=== PATIENT | female | born 1985 | race Two or more races ===

== ENCOUNTER → 2018-03-17 | Outpatient (CLI) | payer SELFPAY ==
--- NOTE | 2018-03-17 15:38 | RADIOLOGY REPORT (SQ) ---
EXAM DESCRIPTION: U/S [id number] TRNABD 1GES W/ODOP COMPLETED DATE/TIME: 03/17/2018 2:31 pm REASON FOR STUDY: ENCOUNTER FOR SUPRVSN OF NORMAL , FIRST TRIMESTER Z34.81 ENCOUNTER FOR S UPRVSN OF NORMAL , FIRST TRIM COMPARISON: None. TECHNIQUE: Transabdominal static and realtime grayscale images acquired of the pelvis. Additional se lected spectral and color Doppler images recorded. All images stored on PACs. bHCG: Not available CLINICAL DATES: Last menses 12/28/2017 LIMITATIONS: None. FINDINGS: FETUS: Living intrauterine . ULTRASOUND EGA: 11 weeks 4 days ULTRASOUND FADIA: 10/02/2018 CRL: 4.8 cm FHR: 171 beats per minute. SUBCHORIONIC BLEED: No SIZE OF BLEED: Not applicable. UTERUS: No masses. No anomalies. Uterus is 15 x 10 x 8 cm in size. CERVICAL LENGTH: 4.4 cm Closed. RIGHT ADNEXA: Right ovary is 3.4 x 3 x 2.3 cm in size with a 2.4 cm right ovarian cyst, likely the co rpus luteum. Normal color flow No adnexal free fluid. No adnexal masses. LEFT ADNEXA: Not visualized due to adnexal bowel gas. FREE FLUID: None. OTHER: No other significant finding. IMPRESSION: LIVING INTRAUTERINE . EGA 11 weeks 4 days Trimester of : First - 0 to 13 weeks. TECHNICAL DOCUMENTATION: JOB ID: [id number] [employer]- All Rights Reserved Reading location - IP/workstation name: [email or web address]
== END ==
LOC: RAD 13:58
PROVIDERS: ATTEND Nurse Practitioner Women's Health
DX: O34.81 Maternal care for other abnormalities of pelvic organs, first trimester (principal); N83.11 Corpus luteum cyst of right ovary; Z3A.11 11 weeks gestation of pregnancy
CPT/HCPCS: 76801

== ENCOUNTER → 2018-08-28 | Outpatient (CLI) | payer SELFPAY ==
--- NOTE | 2018-08-28 15:58 | RADIOLOGY REPORT (SQ) ---
EXAM DESCRIPTION: U/S OB 14+ TRNABD 1GES W/O DOP COMPLETED DATE/TIME: 08/28/2018 2:41 pm REASON FOR STUDY: Z34.83 ENCOUTER FOR SUPERVISION OF OTHER NORMAL ,THIRD TRIMESTER Z34.83 ENCOUNTER FOR SUPRVSN OF NORMAL , THIRD TRIM COMPARISON: None. TECHNIQUE: Static and Dynamic grayscale imaging performed of gravid uterus using transabdominal appr oach. Additional selected color Doppler and spectral images recorded. All stored on PACS. LIMITATIONS: None. FINDINGS: FETUSES SEEN:1 EGA: 35 week 2 day. Calculated using BPD,FL,HC,AC documented on images. No discrepancy with clinical dates. FADIA: 09/30/2018. EFW: 2,799 grams PERCENTILE: 62%. LATANYA: 4.2 cm. PLACENTA: Fundal GRADE: I PRESENTATION: Cephalic. ANATOMY: HEART RATE: 143 beats per minute. FOUR CHAMBER HEART: Visualized. THREE VESSEL CORD: Yes. CORD INSERTION: Not visualized. KIDNEYS AND BLADDER: Visualized. Appear normal. STOMACH: Visualized. Appears normal. SPINE: Limited visualization. No gross abnormality. BRAIN AND LATERAL VENTRICLES: Lateral ventricles and cerebellum not seen. Normal brain as visualized. OTHER: No other significant finding. MATERNAL ADNEXA: Maternal ovaries not visualized. CERVICAL LENGTH: 4 cm. Closed. OTHER: No other significant finding. IMPRESSION: LIVING INTRAUTERINE . ESTIMATED GESTATIONAL AGE 35 WEEK 2 DAY. LIMITED VISUALIZATION OF THE ANATOMY. THERE IS OLIGOHYDRAMNIOS. Trimester of : Third trimester - 28 weeks to delivery. TECHNICAL DOCUMENTATION: JOB ID: [id number] [employer]- All Rights Reserved Reading location - IP/workstation name: [email or web address]
== END ==
LOC: RAD 15:04
PROVIDERS: ATTEND Nurse Practitioner
DX: Z34.83 Encounter for supervision of other normal pregnancy, third trimester (principal)
CPT/HCPCS: 76805

== ENCOUNTER 2018-08-30 15:58 | Outpatient (CLI) | payer SELFPAY ==
[2018-08-30] MEDS: RINGERS SOLUTION,LACTATED 1,000 ML IV ONE (16:30)
[2018-08-30 16:40] LABS: APPEARANCE,URINE CLEAR; BILIRUBIN,URINE NEGATIVE (NEGATIVE); COLOR,URINE YELLOW; GLUCOSE, URINE NEGATIVE (NEGATIVE); KETONES,URINE NEGATIVE (NEGATIVE); LEUKOCYTE ESTERASE,URINE NEGATIVE (NEGATIVE); NITRITE,URINE NEGATIVE (NEGATIVE); PROTEIN,URINE NEGATIVE (NEGATIVE); URINE SPECIFIC GRAVITY 1.008; UROBILINOGEN,URINE NEGATIVE mg/dL (<2.0)
[2018-08-30 16:58] LABS: URINE AMPHETAMINES SCREEN NEGATIVE; URINE BARBITURATES SCREEN NEGATIVE; URINE BENZODIAZEPINES SCREEN NEGATIVE; URINE COCAINE SCREEN NEGATIVE; URINE MARIJUANA (THC) SCREEN NEGATIVE; URINE METHADONE SCREEN NEGATIVE; URINE PHENCYCLIDINE SCREEN NEGATIVE
--- NOTE | 2018-08-30 19:11 | RADIOLOGY REPORT (SQ) ---
EXAM DESCRIPTION: U/S OB LIMITED COMPLETED DATE/TIME: 08/30/2018 7:01 pm REASON FOR STUDY: LATANYA- 35.2 WEEK IUP, OLIGO COMPARISON: 08/28/2018 TECHNIQUE: Limited transabdominal grayscale ultrasound for evaluation of specific requested obstetri jai parameters. LIMITATIONS: None. FINDINGS: CERVICAL LENGTH: 4.7 cm. Closed. LATANYA: 5.3 cm. FHR: 139 beats per minute. PRESENTATION: Cephalic. PLACENTA: Not assessed ANATOMY: Not assessed OTHER: No other significant findings. IMPRESSION: LIMITED OBSTETRICAL ULTRASOUND WITH MEASURED PARAMETERS DELINEATED ABOVE. Trimester of : Third trimester - 28 weeks to delivery. TECHNICAL DOCUMENTATION: JOB ID: [id number] [employer]- All Rights Reserved Reading location - IP/workstation name: [email or web address]
== END 2018-08-30 19:50 | disposition home or self-care (01) ==
LOC: LC 15:58
PROVIDERS: ATTEND Obstetrics & Gynecology
PROC: 4A1HXCZ Monitoring of Products of Conception, Cardiac Rate, External Approach (ICD-10-PCS; principal; 2018-08-30)
DX: Z34.83 Encounter for supervision of other normal pregnancy, third trimester (principal)
CPT/HCPCS: 59025; 76815; 80307; 81001; 84112

== ENCOUNTER 2018-09-06 13:47 | Outpatient (CLI) | payer SELFPAY ==
--- NOTE | 2018-09-06 14:14 | Non Stress Test Report ---
Non Stress Test Datetime Report Generated by CPN: 09/06/2018 14:14 DEMOGRAPHIC EGA NST: 36.2 EGA NST: 35.2 INDICATION Indication for Study: Oligohydramnios; Ordered by Provider Indication for Study: Oligohydramnios; Ordered by Provider VITAL SIGNS Temperature - NST: 96.2 Pulse - NST: 80 RESP - NST: 14 NBPSYS NST: 132 NBPDIA NST: 77 URINE RESULTS Urine Protein, NST: Negative Urine Ketones - NST: Negative Urine Glucose - NST: Negative Urine Blood - NST: Negative MONITORING Monitor Explained: Monitor Explained; Test Explained Monitor Explained: Monitor Explained; Test Explained; Patient Verbalized Understanding Time on Monitor: 09/06/2018 13:47 Time on Monitor: 08/30/2018 16:18 Time off Monitor: 09/06/2018 14:08 Time off Monitor: 08/30/2018 17:27 NST Duration: 21 NST Duration: 69 NST INTERVENTIONS NST Interventions: PO Hydration NST Interventions: PO Hydration; IV Fluids; Reposition Patient Physician Notified NST: Dr. Noble Physician Notified NST: Dr. Vinson BABY A: [id number] BABY A Movement : Present Movement : Present Contraction Frequency : 0 Contraction Frequency : None FHR Baseline : 125 FHR Baseline : 135 Accelerations : 15X15 Accelerations : 15X15 Decelerations : None Decelerations : None Variability : Moderate 6-25bpm Variability : Moderate 6-25bpm NST Review: Meets Criteria for Reactive NST NST Review: Meets Criteria for Reactive NST NST Review and Verified By : RO MARTINEZ RN NST Review and Verified By : Jass BROWNE NST Results: Reactive NST Results: Reactive NST REPORT Report Trigger: Send Report
--- NOTE | 2018-09-06 15:57 | RADIOLOGY REPORT (SQ) ---
EXAM DESCRIPTION: U/S OB LIMITED COMPLETED DATE/TIME: 09/06/2018 3:43 pm REASON FOR STUDY: needs LATANYA/SDP, monitoring, AMA COMPARISON: 08/30/2018 TECHNIQUE: Limited transabdominal grayscale ultrasound for evaluation of specific requested obstetri jai parameters. LIMITATIONS: None. FINDINGS: CERVICAL LENGTH: 5.5 cm. Closed. LATANYA: 6.3 cm, previously 5.3 cm. FHR: 155 beats per minute. PRESENTATION: Cephalic. PLACENTA: Anterior ANATOMY: Not assessed OTHER: No other significant findings. IMPRESSION: LIMITED OBSTETRICAL ULTRASOUND WITH MEASURED PARAMETERS DELINEATED ABOVE. Trimester of : Third trimester - 28 weeks to delivery. TECHNICAL DOCUMENTATION: JOB ID: [id number] [employer]- All Rights Reserved Reading location - IP/workstation name: [email or web address]
== END 2018-09-06 16:01 | disposition home or self-care (01) ==
LOC: LC 13:47
PROVIDERS: ATTEND Student in an Organized Health Care Education/Training Program
PROC: 4A1HXCZ Monitoring of Products of Conception, Cardiac Rate, External Approach (ICD-10-PCS; principal; 2018-09-06)
DX: Z34.93 Encounter for supervision of normal pregnancy, unspecified, third trimester (principal)
CPT/HCPCS: 59025; 76815

== ENCOUNTER 2018-09-08 13:58 | Outpatient (CLI) | payer SELFPAY ==
--- NOTE | 2018-09-08 14:11 | Non Stress Test Report ---
Non Stress Test Datetime Report Generated by CPN: 09/08/2018 14:10 DEMOGRAPHIC EGA NST: 36.4 INDICATION Indication for Study: Other Indication for Study: Oligohydramnios; Other Indication for Study (NST) Other: biweekly nst scheduled Indication for Study (NST) Other: repeat NST VITAL SIGNS Temperature - NST: 98.1 Pulse - NST: 88 RESP - NST: 18 NBPSYS NST: 113 NBPDIA NST: 67 MONITORING Monitor Explained: Monitor Explained; Test Explained; Patient Verbalized Understanding Monitor Explained: Monitor Explained; Test Explained; Patient Verbalized Understanding Time on Monitor: 09/08/2018 13:43 Time off Monitor: 09/08/2018 14:09 NST Duration: 26 NST INTERVENTIONS NST Interventions: PO Hydration; Reposition Patient NST Interventions: PO Hydration Physician Notified NST: K Momin CNM BABY A: [id number] BABY A Movement : Present Contraction Frequency : 0 FHR Baseline : 130 Accelerations : 15X15 Decelerations : None Variability : Moderate 6-25bpm NST Review: Meets Criteria for Reactive NST NST Review and Verified By : D Magda RN NST Results: Reactive NST REPORT Report Trigger: Send Report
--- NOTE | 2018-09-11 15:26 | RADIOLOGY REPORT (SQ) ---
EXAM DESCRIPTION: U/S OB 14+ TRNABD 1GES W/O DOP COMPLETED DATE/TIME: 09/11/2018 3:01 pm REASON FOR STUDY: ENCTR FOR SUPERVISION OF OTHER NORMAL , 3RD TRIMESTER (Z34.83) O41.03X0 OLIGOHYDRAMNIOS, THIRD TRIMESTER, NOT APPLICABLE OR Z3A.36 36 WEEKS GESTATION OF COMPARISON: 09/06/2018 TECHNIQUE: Limited transabdominal grayscale ultrasound for evaluation of specific requested obstetri jai parameters. LIMITATIONS: None. FINDINGS: CERVICAL LENGTH: 4.8 cm. Closed. LATANYA: 10.3 cm. FHR: 140 beats per minute. PRESENTATION: Cephalic. PLACENTA: Not assessed ANATOMY: Not assessed OTHER: Gestational age 34 weeks 3 days. Estimated body weight is 5 lb 13 oz. IMPRESSION: LIMITED OBSTETRICAL ULTRASOUND WITH MEASURED PARAMETERS DELINEATED ABOVE. Trimester of : Third trimester - 28 weeks to delivery. TECHNICAL DOCUMENTATION: JOB ID: [id number] [employer] All Rights Reserved Reading location - IP/workstation name: [email or web address]
== END 2018-09-08 14:42 | disposition home or self-care (01) ==
LOC: LC 13:58
PROVIDERS: ATTEND Obstetrics & Gynecology
PROC: 4A1HXCZ Monitoring of Products of Conception, Cardiac Rate, External Approach (ICD-10-PCS; principal; 2018-09-08)
DX: O41.03X0 Oligohydramnios, third trimester, not applicable or unspecified (principal); Z3A.36 36 weeks gestation of pregnancy
CPT/HCPCS: 59025

== ENCOUNTER → 2018-09-11 | Outpatient (CLI) | payer SELFPAY ==
--- NOTE | 2018-09-11 15:26 | RADIOLOGY REPORT (SQ) ---
EXAM DESCRIPTION: U/S OB 14+ TRNABD 1GES W/O DOP COMPLETED DATE/TIME: 09/11/2018 3:01 pm REASON FOR STUDY: ENCTR FOR SUPERVISION OF OTHER NORMAL , 3RD TRIMESTER (Z34.83) O41.03X0 OLIGOHYDRAMNIOS, THIRD TRIMESTER, NOT APPLICABLE OR Z3A.36 36 WEEKS GESTATION OF COMPARISON: 09/06/2018 TECHNIQUE: Limited transabdominal grayscale ultrasound for evaluation of specific requested obstetri jai parameters. LIMITATIONS: None. FINDINGS: CERVICAL LENGTH: 4.8 cm. Closed. LATANYA: 10.3 cm. FHR: 140 beats per minute. PRESENTATION: Cephalic. PLACENTA: Not assessed ANATOMY: Not assessed OTHER: Gestational age 34 weeks 3 days. Estimated body weight is 5 lb 13 oz. IMPRESSION: LIMITED OBSTETRICAL ULTRASOUND WITH MEASURED PARAMETERS DELINEATED ABOVE. Trimester of : Third trimester - 28 weeks to delivery. TECHNICAL DOCUMENTATION: JOB ID: [id number] [employer]- All Rights Reserved Reading location - IP/workstation name: [email or web address]
== END ==
LOC: RAD 14:00
PROVIDERS: ATTEND Nurse Practitioner
DX: Z34.83 Encounter for supervision of other normal pregnancy, third trimester (principal)
CPT/HCPCS: 76805

== ENCOUNTER 2018-09-14 10:27 | Outpatient (CLI) | payer SELFPAY ==
--- NOTE | 2018-09-14 11:48 | Non Stress Test Report ---
Non Stress Test Datetime Report Generated by CPN: 09/14/2018 11:47 DEMOGRAPHIC EGA NST: 37.3 INDICATION Indication for Study: Ordered by Provider MONITORING Monitor Explained: Monitor Explained; Test Explained Time on Monitor: 09/14/2018 10:40 Time off Monitor: 09/14/2018 11:18 NST Duration: 38 NST INTERVENTIONS NST Interventions: PO Hydration; Reposition Patient Physician Notified NST: Karly Baer, CNM BABY A: [id number] BABY A Movement : Present Contraction Frequency : 0 FHR Baseline : 140 Accelerations : 15X15 Decelerations : None Variability : Moderate 6-25bpm NST Review: Meets Criteria for Reactive NST NST Review and Verified By : HOLLIE Ewing Results: Reactive NST REPORT Report Trigger: Send Report
== END 2018-09-14 11:25 | disposition home or self-care (01) ==
LOC: LC 10:27
PROVIDERS: ATTEND Student in an Organized Health Care Education/Training Program
PROC: 4A1HXCZ Monitoring of Products of Conception, Cardiac Rate, External Approach (ICD-10-PCS; principal; 2018-09-14)
DX: O09.523 Supervision of elderly multigravida, third trimester (principal); Z3A.37 37 weeks gestation of pregnancy
CPT/HCPCS: 59025

== ENCOUNTER 2018-09-18 11:45 | Outpatient (CLI) | payer SELFPAY ==
--- NOTE | 2018-09-18 13:13 | Non Stress Test Report ---
Non Stress Test Datetime Report Generated by CPN: 09/18/2018 13:13 DEMOGRAPHIC EGA NST: 38.0 INDICATION Indication for Study: Ordered by Provider MONITORING Monitor Explained: Monitor Explained; Test Explained; Patient Verbalized Understanding Time on Monitor: 09/18/2018 11:57 Time off Monitor: 09/18/2018 12:20 NST Duration: 23 NST INTERVENTIONS NST Interventions: PO Hydration Physician Notified NST: C. Miranda, CNM BABY A: [id number] BABY A Movement : Present Contraction Frequency : rare FHR Baseline : 140 Accelerations : 15X15 Decelerations : None Variability : Moderate 6-25bpm NST Review: Meets Criteria for Reactive NST NST Review and Verified By : HOLLIE GARZA Results: Reactive NST REPORT Report Trigger: Send Report
--- NOTE | 2018-09-18 13:17 | RADIOLOGY REPORT (SQ) ---
EXAM DESCRIPTION: U/S OB LIMITED COMPLETED DATE/TIME: 09/18/2018 1:00 pm REASON FOR STUDY: IUP @ 37w3d AMA COMPARISON: OB ultrasound 09/11/2018 TECHNIQUE: Limited transabdominal grayscale ultrasound for evaluation of specific requested obstetri jai parameters. LIMITATIONS: None. FINDINGS: CERVICAL LENGTH: Not evaluated LATANYA: 10.3 cm. FHR: 136 beats per minute. PRESENTATION: Cephalic. PLACENTA: Anterior fundal grade 1 ANATOMY: Not assessed OTHER: No other significant findings. IMPRESSION: M avid fluid index 10.3 cm, heart rate 136 beats per minute Trimester of : Third trimester - 28 weeks to delivery. TECHNICAL DOCUMENTATION: JOB ID: [id number] [employer]- All Rights Reserved Reading location - IP/workstation name: [email or web address]
== END 2018-09-18 13:10 | disposition home or self-care (01) ==
LOC: LC 11:45
PROVIDERS: ATTEND Obstetrics & Gynecology
PROC: 4A1HXCZ Monitoring of Products of Conception, Cardiac Rate, External Approach (ICD-10-PCS; principal; 2018-09-18)
DX: O09.523 Supervision of elderly multigravida, third trimester (principal); Z3A.38 38 weeks gestation of pregnancy
CPT/HCPCS: 59025; 76815

== ENCOUNTER 2018-09-21 09:56 | Outpatient (CLI) | payer SELFPAY ==
--- NOTE | 2018-09-21 10:40 | Non Stress Test Report ---
Non Stress Test Datetime Report Generated by CPN: 09/21/2018 10:40 DEMOGRAPHIC EGA NST: 38.3 INDICATION Indication for Study: Ordered by Provider VITAL SIGNS Temperature - NST: 97.9 Pulse - NST: 90 RESP - NST: 20 NBPSYS NST: 114 NBPDIA NST: 74 MONITORING Monitor Explained: Monitor Explained; Test Explained Time on Monitor: 09/21/2018 10:07 Time off Monitor: 09/21/2018 10:36 NST Duration: 29 NST INTERVENTIONS NST Interventions: PO Hydration; Reposition Patient Physician Notified NST: J. Costello, CNM BABY A: [id number] BABY A Movement : Present Contraction Frequency : intermittent FHR Baseline : 135 Accelerations : 15X15 Decelerations : None Variability : Moderate 6-25bpm NST Review: Meets Criteria for Reactive NST NST Review and Verified By : Tanisha Kevin RNC NST Results: Reactive NST REPORT Report Trigger: Send Report
== END 2018-09-21 10:38 | disposition home or self-care (01) ==
LOC: LC 09:56
PROVIDERS: ATTEND Obstetrics & Gynecology Gynecology
PROC: 4A1HXCZ Monitoring of Products of Conception, Cardiac Rate, External Approach (ICD-10-PCS; principal; 2018-09-21)
DX: O09.523 Supervision of elderly multigravida, third trimester (principal); Z3A.38 38 weeks gestation of pregnancy
CPT/HCPCS: 59025

== ENCOUNTER 2018-09-29 07:35 | Inpatient (IN) | payer SELFPAY ==
[2018-09-29] MEDS ORDERED: RINGERS SOLUTION,LACTATED 1,000 ML IV ONE (08:11)
[2018-09-29] MEDS ORDERED: OXYTOCIN/NORMAL SALINE 20 UNIT/1,000 ML RTUINJ IV PRN (08:23)
--- NOTE | 2018-09-29 08:33 | Admission Physical ---
Datetime Report Generated by CPN: 09/29/2018 08:33 CURRENT ADMISSION Chief Complaint: Suspected Ruptured Membranes Indication for Induction: Not Applicable Admit Impression : Term, Intrauterine Admit Plan: Admit to Unit; Initiate Labor Protocol ALLERGIES Medication Allergies: No Medication Allergies: No Known Allergies (09/18/2018) Latex: No Latex Allergies Food Allergies: NKA OBSTETRICAL HISTORY EDC: 10/02/2018 00:00 : 3 Para: 2 Term: 2 Livin Cesareans: 0 SEE RECORDS Alcohol: No Marijuana : No Cocaine: No Other Illicit Drugs: No Cigarettes: Never Smoker. [id number] PHYSICAL EXAM General: Normal HEENT: Normal Neurologic: Normal Thyroid: Normal Heart: Normal Lungs: Normal Breast: Normal Back: Normal Abdomen: Normal Genitourinary Exam: Normal Extremities: Normal DTRs: Normal Pelvic Type: Adequate Vital Signs: Reviewed; Within Normal Limits VAGINAL EXAM Dilatation: 3 Effacement: 50 Station: -3 MEMBRANES Pooling: Positive Membranes: Ruptured Amniotic Fluid Color: Clear FETUS A EGA: 39.4 Monitoring: External US FHR- Baseline: 120-30s Variability: Moderate 6-25bpm Accelerations: 15X15 Decelerations: None FHR Category: Category I Admit Comment: Pt grossly ruptured. Reports that it occurred at 0400--clear; GBS Neg INFORMED CONSENT Signature: with User ID: [email or web address]
[2018-09-29 08:38] LABS: APPEARANCE,URINE SLIGHTLY-CLOUDY; BILIRUBIN,URINE NEGATIVE (NEGATIVE); COLOR,URINE YELLOW; GLUCOSE, URINE NEGATIVE (NEGATIVE); KETONES,URINE NEGATIVE (NEGATIVE); LEUKOCYTE ESTERASE,URINE NEGATIVE (NEGATIVE); NITRITE,URINE NEGATIVE (NEGATIVE); PROTEIN,URINE NEGATIVE (NEGATIVE); URINE SPECIFIC GRAVITY 1.009; UROBILINOGEN,URINE NEGATIVE mg/dL (<2.0)
[2018-09-29 09:00] LABS: URINE AMPHETAMINES SCREEN NEGATIVE; URINE BARBITURATES SCREEN NEGATIVE; URINE BENZODIAZEPINES SCREEN NEGATIVE; URINE COCAINE SCREEN NEGATIVE; URINE MARIJUANA (THC) SCREEN NEGATIVE; URINE METHADONE SCREEN NEGATIVE; URINE PHENCYCLIDINE SCREEN NEGATIVE
[2018-09-29 09:14] LABS: ABSOLUTE LYMPHOCYTES (AUTO) 1.8 10^3/uL (0.5-4.7); ABSOLUTE MONOCYTES (AUTO) 0.5 10^3/uL (0.1-1.4); ABSOLUTE NEUT (AUTO) 7.3 10^3/uL (1.7-8.2); BASOPHILS % (AUTO) 0.2 % (0-2); EOSINOPHILS % (AUTO) 0.3 % (0-6); HEMATOCRIT 40.9 % (36.0-47.0); HEMOGLOBIN 14.3 g/dL (12.0-15.5); LYMPHOCYTES % (AUTO) 18.5 % (13-45); MEAN CORPUSCULAR HEMOGLOBIN 33.1 pg (27.0-33.4); MEAN CORPUSCULAR VOLUME 95 fl (80-97); PLATELET COUNT 179 10^3/uL (150-450); RED BLOOD COUNT 4.33 10^6/uL (3.72-5.28); RED CELL DISTRIBUTION WIDTH 13.1 % (11.5-14.0); TOTAL CELLS COUNTED % (AUTO) 100 %; WHITE BLOOD COUNT 9.6 10^3/uL (4.0-10.5)
[2018-09-29] MEDS ORDERED: OXYTOCIN 10 UNIT/ML VIAL ONE (09:42)
[2018-09-29] MEDS ORDERED: OXYTOCIN/NORMAL SALINE 20 UNIT/1,000 ML RTUINJ ONE (09:43)
[2018-09-29] MEDS ORDERED: LIDOCAINE 1% INJ-PF (10 MG/ML) 30 ML SDV ONE (09:43)
[2018-09-29] MEDS ORDERED: MISOPROSTOL 0.2 MG TABLET ONE (09:43)
--- NOTE | 2018-09-29 12:27 | RADIOLOGY REPORT (SQ) ---
EXAM DESCRIPTION: U/S OB LIMITED COMPLETED DATE/TIME: 09/29/2018 12:18 pm REASON FOR STUDY: placental placement, lie COMPARISON: 09/18/2018. TECHNIQUE: Limited transabdominal grayscale ultrasound for evaluation of specific requested obstetri jai parameters. LIMITATIONS: None. FINDINGS: CERVICAL LENGTH: 5.0 cm. Closed. LATANYA: 6.4 cm. FHR: 153 beats per minute. PRESENTATION: Cephalic. PLACENTA: Fundal. ANATOMY: Not assessed OTHER: No other significant findings. IMPRESSION: LIMITED OBSTETRICAL ULTRASOUND WITH MEASURED PARAMETERS DELINEATED ABOVE. Trimester of : Third trimester - 28 weeks to delivery. TECHNICAL DOCUMENTATION: JOB ID: [id number] [employer]- All Rights Reserved Reading location - IP/workstation name: [email or web address]
--- NOTE | 2018-09-29 12:28 | L&D Progress Notes ---
PROGRESS NOTES Datetime Report Generated by CPN: 09/29/2018 12:28 PROGRESS NOTE Impression: Reassuring Heart Rate Impression Other: SROM at 0400 Procedures- Other: ultrasound done to r/o placenta previa Plan: Continue Present Management; Augmentation; Anticipate Vaginal Delivery Vital Signs : Reviewed; Within Normal Limits Comment: Pt sent to u/s after finding on her records that she had had a Placenta Previa at some point in her . Per [facility] u/s today, she now has fundal placenta. PLan to start pt back on Pitocin to augment contractions. Pt plans an epidural when getting uncomfortable. No vaginal bleeding. Attending MD is Dr Shahid. VAGINAL EXAM Dilatation: 3 Effacement: 50 Station: -3 LAST VAGINAL EXAM-NURSING Dilitation: 3.0 Effacement: 50 Station: -4 MEMBRANES Pooling: Positive Membranes: Ruptured Amniotic Fluid Color: Clear FETUS A FHR - Baseline: 145 Monitoring: External US Variability: Moderate 6-25bpm Accelerations: 15X15 Decelerations: None FHR Category: Category I : 39.4 SIGNATURE SIGNATURE: 10,[id number];14,[id number];13,[id number] SIGNATURE: 13,[id number];14,[id number] SIGNATURE: 14,[id number] SIGNATURE: 14,[id number] SIGNATURE: 14,[id number] SIGNATURE: 14,[id number] SIGNATURE: 14,[id number] Assignment: Omer Shahid MD Signature: with User ID: [email or web address] : with User ID: [email or web address]
[2018-09-29] MEDS: RINGERS SOLUTION,LACTATED 1,000 ML IV PRN ×2 (13:30→15:22)
[2018-09-29] MEDS ORDERED: EPHEDRINE SULFATE INJ 50 MG/1 ML AMPULE ONE (14:49)
[2018-09-29] MEDS ORDERED: FENTANYL/BUPIVACAINE/NS/PF 300 MCG/150 ML RTUINJ EPI ONE (14:50)
[2018-09-29] MEDS ORDERED: BUPIVACAINE HCL 0.25 % INJ/PF (2.5 MG/1 ML) 30 ML VIAL ONE (14:50)
[2018-09-29] MEDS ORDERED: FENTANYL CITRATE INJ/PF 100 MCG/2 ML AMPUL ONE (15:27)
[2018-09-29] MEDS ORDERED: LIDOCAINE 1.5%/EPINEPHRINE INJ-PF 30 ML SDV ONE (15:41)
--- NOTE | 2018-09-29 16:57 | L&D Progress Notes ---
PROGRESS NOTES Datetime Report Generated by CPN: 09/29/2018 16:57 PROGRESS NOTE Impression: Normal Progression of Labor Procedures: Sterile Vag Exam Plan: Anticipate Vaginal Delivery Vital Signs : Reviewed; Within Normal Limits Comment: Pt remains comfortable w/ the epidural. Pitocin infusing. VE /-2. Encourge Position changes, GBS negative, Anticipate . Attending MD is Dr Shahid VAGINAL EXAM Dilatation: 5 Effacement: 90 Station: -2 Contractions: q2-3 Dilitation: 5.0 Dilitation: 3.0 Dilitation: 2.0 Effacement: 90 Effacement: 70 Effacement: 50 Station: -2 Station: -2 Station: -4 MEMBRANES Membranes: Ruptured Amniotic Fluid Color: Clear FETUS A FHR - Baseline: 130 Variability: Moderate 6-25bpm Accelerations: 15X15 FHR Comments: mild variable decels FETUS C SIGNATURE: 13,[id number];14,[id number];10,[id number] Assignment: Omer Shahid MD Signature: with User ID: [email or web address] : with User ID: [email or web address]
--- NOTE | 2018-09-29 21:19 | Warning Signs in Babies ---
VOD Warning Signs Datetime Report Generated by [facility]: 09/29/2018 21:19 VOD#608 -Warning Signs in Babies: Needs to be viewed. (08/30/2018 16:07:Linda Paredes RN)
[2018-09-29] MEDS ORDERED: BENZOCAINE/MENTHOL AEROSOL SPRAY 56 ML ONE (23:43)
[2018-09-30] MEDS ORDERED: ZOLPIDEM TARTRATE 5 MG TABLET PO PRN (06:45)
[2018-09-30] MEDS ORDERED: PROMETHAZINE HCL INJ 25 MG/1 ML VIAL IV PRN (06:45)
[2018-09-30] MEDS ORDERED: ACETAMINOPHEN WITH CODEINE #3 TABLET PO PRN ×2 (06:45)
[2018-09-30] MEDS ORDERED: DIPHENHYDRAMINE HCL 25 MG CAPSULE PO PRN (06:45)
[2018-09-30] MEDS ORDERED: MAGNESIUM HYDROXIDE SUSP 30 ML UDCUP PO PRN (06:45)
[2018-09-30] MEDS ORDERED: MEASLES,MUMPS&RUBELLA VACC/PF 0.5 ML VIAL SUBCUT PRN (06:45)
[2018-09-30] MEDS ORDERED: BENZOCAINE/MENTHOL AEROSOL SPRAY 56 ML TOP PRN (06:45)
[2018-09-30] MEDS ORDERED: PSEUDOEPHEDRINE HCL 30 MG TABLET PO PRN (06:45)
[2018-09-30] MEDS ORDERED: GLYCERIN/WITCH HAZEL LEAF 1 EACH MED..PAD TP PRN (06:45)
[2018-09-30] MEDS ORDERED: NA PHOS,M-B/NA PHOS,DI-BA (ADULT) 133 ML ENEMA PR PRN (06:45)
[2018-09-30] MEDS ORDERED: DIPH/PERTUSS(ACELL)/TETANUS VAC/PF 0.5 ML SYR (>=10YO) IM PRN (06:45)
[2018-09-30] MEDS ORDERED: ACETAMINOPHEN 650 MG SUPP.RECT PR PRN (06:45)
[2018-09-30] MEDS ORDERED: DIBUCAINE 1% OINTMENT 28 GM TP PRN (06:45)
[2018-09-30] MEDS ORDERED: PROMETHAZINE HCL 25 MG TABLET PO PRN (06:45)
[2018-09-30] MEDS ORDERED: PROMETHAZINE HCL 25 MG SUPP.RECT PR PRN (06:45)
[2018-09-30] MEDS: SENNOSIDES/DOCUSATE 8.6-50 MG 1 EACH TABLET PO SCH ×2 (07:01→10:38)
[2018-09-30 07:12] LABS: HEMATOCRIT 39.7 % (36.0-47.0); HEMOGLOBIN 13.7 g/dL (12.0-15.5); MEAN CORPUSCULAR HEMOGLOBIN 32.4 pg (27.0-33.4); MEAN CORPUSCULAR HGB CONC 34.6 g/dL (32.0-36.0); MEAN CORPUSCULAR VOLUME 94 fl (80-97); PLATELET COUNT 163 10^3/uL (150-450); RED BLOOD COUNT 4.23 10^6/uL (3.72-5.28); RED CELL DISTRIBUTION WIDTH 13.3 % (11.5-14.0); WHITE BLOOD COUNT 15.1 10^3/uL (4.0-10.5)
--- NOTE | 2018-09-30 07:30 | Delivery Summary ---
Del Sum A-C Datetime Report Generated by CPN: 09/30/2018 07:30 DELIVERY PERSONNEL DELIVERY PERSONNEL: [id number] Delivery Doctor:: Omer Shahid MD Labor and Delivery Nurse:: Marisa Dover RNregistered land surveyor Nurse:: AMIE Celaya Nursery Nurse:: Shona Reid RN Client Account Specialist/CONCRETE PUMP OPERATOR HELPER: Eun Florentino Additional Personnel: : Lloyd Meier RN MATERNAL INFORMATION Delivery Anesthesia: Epidural Medications After Delivery: Pitocin Drip 20 Units/1000ml NSS Maternal Complications: None Provider Comments: vacuume for poor maternal effort 3 pop off but successfull delivery LABOR SUMMARY EDC: 10/02/2018 00:00 No. Babies in Womb: 1 Attempted: No Labor Anesthesia: Epidural LABOR INFORMATION Reason for Induction: Premature Rupture of Membranes Onset of Labor: 09/29/2018 04:00 Complete Dilatation: 09/29/2018 18:15 Oxytocin: Induction Group B Beta Strep: Negative Antibiotics # of Doses: 0 Antibiotics Time of Last Dose: n/a Name of Antibiotic Given: n/a Steroids Given: None Reason Steroids Not Administered: Not Applicable MEMBRANES Membranes Rupture Method: Spontaneous Rupture of Membranes: 09/29/2018 04:00 Length of Rupture (hr): 14.55 Amniotic Fluid Color: Clear Amniotic Fluid Amount: Moderate Amniotic Fluid Odor: Normal STAGES OF LABOR Stage 1 hr: 14 Stage 1 min: 15 Stage 2 hr: 0 Stage 2 min: 18 Stage 3 hr: 0 Stage 3 min: 2 Total Time in Labor hr: 14 Total Time in Labor min: 35 VAGINAL DELIVERY Episiotomy: None Laceration #1: Perineal Laceration Extension #1: First Degree Laceration Repair: Yes Laceration Repair Note: repaired with 2-0 vicryl Sponge Count Correct: Yes Sharps Count Correct: N/A CSECTION DELIVERY Primary Indication: N/A Secondary Indication: N/A CSection Incidence: N/A Labor: N/A Elective: N/A CSection Incision: N/A BABY A INFORMATION Infant Delivery Date/Time: 09/29/2018 18:33 Method of Delivery: Vaginal Born in Route : No : N/A Forceps: N/A Vacuum Extraction: Successful Shoulder Dystocia : No ASSISTED DELIVERY BABY A Indication for Assisted Delivery: poor maternal effort Catheter Prior to Procedure: Yes Station Vacuum/Forcep Apply: 2 Vacuum Number of Pulls: 3 Vacuum Number of PopOffs: 2 Reduce Pressure btwn Ctx: Yes PRESENTATION/POSITION BABY A Presentation: Cephalic Cephalic Presentation: Vertex Breech Presentation: N/A PLACENTA INFORMATION BABY A Placenta Delivery Time : 09/29/2018 18:35 Placenta Method of Delivery: Spontaneous Placenta Status: Delivered SCORES BABY A Heart Rate 1 min: >100 bpm Resp Effort 1 min: Good Cry Reflex Irritability 1 min: Cough or Sneeze or Pulls Away Muscle Tone 1 min: Active Motion Color 1 min: Body Thunderbolt, Extremities Blue Resuscitation Effort 1 min: Tactile Stimulation SCORE 1 MIN: 9 Heart Rate 5 min: >100 bpm Resp Effort 5 min: Good Cry Reflex Irritability 5 min: Cough or Sneeze or Pulls Away Muscle Tone 5 min: Active Motion Color 5 min: Body Thunderbolt, Extremities Blue Resuscitation Effort 5 min: N/A SCORE 5 MIN: 9 INFORMATION BABY A Gestational Age at Delivery: 39.4 Gestational Status: Full Term- 39- 40.6 Weeks Infant Outcome : Liveborn Condition : Stable Sex: Male IDENTIFICATION BABY A ID Band Number: [id number] Mother's Name Verified: Yes RN Verifying Infant: S Kadi RNC-OB Additional Verifying Personnel: Alejandro Urias RN WEIGHT/LENGTH BABY A Infant Birthweight (gm): 3667 Infant Weight (lb): 8 Infant Weight (oz): 1 Length (in): 19.00 Length (cm): 48.26 CORD INFORMATION BABY A No. Cord Vessels: 3 Nuchal Cord : N/A Cord Blood Taken: Yes-For Eval (Mom's Blood Type - or O+) Infant Suction: Mouth; Nose ASSESSMENT BABY A Infant Complications: None Physical Findings at Delivery: Within Normal Limits; Caput Succedaneum Physical Findings- Other: see full nursery urogynecology physician Infant Respirations: Appears Normal Skin to Skin: Yes Hvac Sheet Metal Installer/ALS Called : No Infant Care By: Pilar Reid RN Transferred To: Remains with Mother BABY B INFORMATION : N/A SIGNATURES Signature: with User ID: [email or web address]
[2018-09-30] MEDS: DOCUSATE SODIUM 100 MG CAPSULE PO SCH ×2 (10:38→19:01)
[2018-09-30] MEDS: FERROUS SULFATE 325 MG TABLET PO SCH ×2 (10:38→19:01)
[2018-09-30] MEDS: FAMOTIDINE 20 MG TABLET PO SCH ×2 (10:38→22:13)
[2018-09-30] MEDS: PRENATAL VITAMIN W DHA CAPSULE PO SCH (10:38)
[2018-09-30] MEDS: IBUPROFEN 800 MG TABLET PO SCH ×2 (17:53→22:13)
[2018-09-30 20:37] VITALS: BP 114/68
[2018-10-01] MEDS: IBUPROFEN 800 MG TABLET PO SCH (06:00)
[2018-10-01] MEDS: SENNOSIDES/DOCUSATE 8.6-50 MG 1 EACH TABLET PO SCH (09:50)
[2018-10-01] MEDS: FAMOTIDINE 20 MG TABLET PO SCH (09:50)
[2018-10-01] MEDS: FERROUS SULFATE 325 MG TABLET PO SCH (09:50)
[2018-10-01] MEDS: PRENATAL VITAMIN W DHA CAPSULE PO SCH (09:50)
[2018-10-01] MEDS: DOCUSATE SODIUM 100 MG CAPSULE PO SCH (09:50)
--- NOTE | 2018-10-01 10:15 | PDOC DISCHARGE SUMMARY ---
Final Diagnosis Discharge Date: 10/01/18 - PP Day #2, pt doing well, breast feeding, no complaints. - Final Diagnosis (1) Vacuum extractor delivery, delivered Is this a current diagnosis for this admission?: Yes (2) Normal course Is this a current diagnosis for this admission?: Yes Discharge Data - Discharge Medication Prescriptions: Ibuprofen [Motrin 800 mg Tablet] 800 mg PO Q8 #60 tablet Home Medications: Vits96/Iron Fum/Folic [ Tablet] 1 tab PO DAILY 08/30/18 Ibuprofen [Motrin 800 mg Tablet] 800 mg PO Q8 #60 tablet 10/01/18 Reason(s) for Admission: Onset of Labor Procedures: None Intrapartum Procedure(s): Spontaneous Vaginal Delivery, Vacuum Extraction Complication(s): Laceration-Perineal Laceration-Degree: 1st - Diagnosis Test Laboratory: Temp Pulse Resp BP Pulse Ox 98.3 F 102 H 18 114/68 96 09/30/18 20:30 09/30/18 20:30 09/30/18 20:30 09/30/18 20:30 09/30/18 20:30 09/29/18 09/29/18 09/30/18 07:38 09:06 07:02 RBC 4.33 4.23 Hgb 14.3 13.7 Hct 40.9 39.7 Urine Opiates Screen NEGATIVE - Discharge information/Instructions Discharge Activity: Activity As Tolerated, No Lifting Over 10 Pounds, Pelvic Rest Discharge Diet: As Tolerated, Regular Disposition: HOME, SELF-CARE Follow up with: [facility] in: 4, Weeks
== END 2018-10-01 13:47 | disposition home or self-care (01) | DRG 807 ==
LOC: LC 07:35 → LR 08:01 → 2S 09-30 07:40
PROVIDERS: ADMIT Obstetrics & Gynecology Gynecology; ATTEND Obstetrics & Gynecology Gynecology
PROC: 10D07Z6 Extraction of Products of Conception, Vacuum, Via Natural or Artificial Opening (ICD-10-PCS; principal; 2018-09-29)
PROC: 0HQ9XZZ Repair Perineum Skin, External Approach (ICD-10-PCS; 2018-09-29)
PROC: 3E033VJ Introduction of Other Hormone into Peripheral Vein, Percutaneous Approach (ICD-10-PCS; 2018-09-29)
PROC: 4A1HXCZ Monitoring of Products of Conception, Cardiac Rate, External Approach (ICD-10-PCS; 2018-09-29)
DX: O75.81 Maternal exhaustion complicating labor and delivery (principal); Z37.0 Single live birth; O70.0 First degree perineal laceration during delivery; Z3A.39 39 weeks gestation of pregnancy
CPT/HCPCS: 36415; 76815; 80307; 81005; 85025; 85027; 86592; 86850; 86900; 86901; 90471; 90686; 90715; G0008; J2590; J3010; J3490